=== PATIENT | female | born 1990 | race Caucasian/White ===

== ENCOUNTER 2023-06-02 07:04 | Outpatient (CLI) | payer BC, SELFPAY ==
--- NOTE | 2023-06-02 07:15 | US_ITS ---
Patient: LISA WALLIS Facility:?[facility] Patient ID:?[id number] Site Patient ID:?[id number]. Site :?[id number] Study:?US-OB Pelvis OB TV-06/02/2023 8:00:59 AM Ordering Physician:LAINEY VILLARREAL CNM Final Report: INDICATION: Ultrasound for dates and viability. Eight week 0 day by LMP. Technique: Multiple transabdominal grayscale and Doppler images obtained FINDINGS: Examination shows a single intrauterine gestation. Large nabothian cyst in the cervix. Right ovary measures 3.0 x 1.4 x 1.7 cm. Left ovary measures 3.2 x 1.7 x 2.5 cm. Corpus luteum present. EARLY GESTATION MEASUREMENTS: Onyx-rump length 1.6 cm, AGA of 8 weeks, 0 days. Mean gestational sac 3.0 cm. Yolk sac: 3.1 cm. Heart Rate: 155 bpm. IMPRESSION: 1. Single viable IUP. 2. Measurements are consistent with clinical dates. Dictated by Gabriel Hawkins MD @ 06/02/2023 12:01:12 PM Signed by:?Gabriel Hawkins MD @06/02/2023 12:01:12 PM (Electronic Signature)
== END 2023-06-02 07:05 | disposition home or self-care (01) ==
PROVIDERS: Visit Provider Advanced Practice Midwife
DX: Z34.91 Encounter for supervision of normal pregnancy, unspecified, first trimester (principal); Z3A.08 8 weeks gestation of pregnancy
CPT/HCPCS: 76817; 86592; 86703; 86704; 86706; 86762; 86787; 86803; 86850; 86900; 86901; 87086; 87340

== ENCOUNTER 2023-06-30 17:10 | Outpatient (CLI) | payer BC, SELFPAY | END 2023-06-30 17:11 | disposition home or self-care (01) | LOC: NFLDREF 17:11 | PROVIDERS: Visit Provider Advanced Practice Midwife | DX: E03.9 Hypothyroidism, unspecified (principal) | CPT/HCPCS: 84443; 87491; 87591 ==

== ENCOUNTER 2023-08-31 11:25 | Outpatient (CLI) | payer BC, SELFPAY | END 2023-08-31 11:26 | disposition home or self-care (01) | LOC: NFLDREF 09-02 08:34 | PROVIDERS: Visit Provider Advanced Practice Midwife | DX: E03.9 Hypothyroidism, unspecified (principal) | CPT/HCPCS: 84443 ==

== ENCOUNTER 2023-10-19 15:06 | Outpatient (CLI) | payer BC, SELFPAY | END 2023-10-19 15:07 | disposition home or self-care (01) | LOC: NFLDREF 10-20 09:45 | PROVIDERS: Visit Provider Advanced Practice Midwife | DX: Z34.83 Encounter for supervision of other normal pregnancy, third trimester (principal); E03.9 Hypothyroidism, unspecified | CPT/HCPCS: 84443; 86592 ==

== ENCOUNTER 2023-11-05 16:00 | Outpatient (CLI) | payer BC, SELFPAY | END 2023-11-05 16:01 | disposition home or self-care (01) | LOC: NFLDREF 11-10 15:27 | PROVIDERS: Visit Provider Midwife | DX: O99.013 Anemia complicating pregnancy, third trimester (principal); D64.9 Anemia, unspecified; Z3A.30 30 weeks gestation of pregnancy | CPT/HCPCS: 82728 ==

== ENCOUNTER 2023-11-11 11:37 | Outpatient (CLI) | payer BC, SELFPAY | END 2023-11-11 11:38 | disposition home or self-care (01) | PROVIDERS: Visit Provider Midwife | DX: O99.713 Diseases of the skin and subcutaneous tissue complicating pregnancy, third trimester (principal); L29.9 Pruritus, unspecified; Z3A.30 30 weeks gestation of pregnancy | CPT/HCPCS: 82239; 84450; 84460 ==

== ENCOUNTER 2023-11-13 07:01 | Outpatient (CLI) | payer BC, SELFPAY ==
--- NOTE | 2023-11-13 07:15 | CRLHL7_ITS ---
For Patients: As a result of the Century Cures Act, medical imaging exams and procedure reports are released immediately into your electronic medical record. You may view this report before your referring provider. If you have questions, please contact your health care provider. INDICATION: Disorders of skin and subcutaneous tissues TECHNIQUE: Real time zavala scale imaging of the fetus was performed. COMPARISON: 06/02/2023 FINDINGS: Sonographic imaging demonstrates a single living intrauterine gestation. Fetus demonstrates a regular cardiac rate of 141 beats per minute. Fetus has a vertex position. The placenta lies anteriorly. Amniotic fluid volume appears normal and there is a single deepest pocket of 7.3 cm. The estimated weight is 2410gm which lies at the greater than 97th percentile %. BPD and AC greater than 97th percentile. The fetus was active and demonstrated normal breathing movements. There was normal flexion and extension of the trunk and extremities. IMPRESSION: Normal biophysical profile score 8/8. Sonographic gestational age 33 weeks 5 days and sonographic due date of 12/27/2023. Sonographic age 16 days ahead of the clinical age. Estimated weight greater than 97th percentile. Abdominal circumference and biparietal diameter greater than 97th percentile. Dictated by King Simmons MD @ 11/13/2023 12:52:56 PM (Electronically Signed)
== END 2023-11-13 07:02 | disposition home or self-care (01) ==
PROVIDERS: Visit Provider Midwife
DX: O99.713 Diseases of the skin and subcutaneous tissue complicating pregnancy, third trimester (principal); L29.9 Pruritus, unspecified; Z3A.30 30 weeks gestation of pregnancy
CPT/HCPCS: 76816

== ENCOUNTER 2023-12-04 15:45 | Outpatient (CLI) | payer BC, SELFPAY | END 2023-12-04 15:46 | disposition home or self-care (01) | LOC: NFLDREF 12-08 09:12 | PROVIDERS: Visit Provider Advanced Practice Midwife | DX: Z34.93 Encounter for supervision of normal pregnancy, unspecified, third trimester (principal); Z3A.34 34 weeks gestation of pregnancy | CPT/HCPCS: 82728 ==

== ENCOUNTER 2023-12-18 05:07 | Inpatient (IN) | payer BC, SELFPAY ==
[2023-12-18] VITALS (24 sets, daily range): BP systolic 121–143; BP diastolic 59–73; PULSE 76–100; RESP 16–18; TEMP 36.8–37.2; O2SAT 90–100; BMI 30.2
[2023-12-18 04:47] LABS: Amnisure Rom* POSITIVE
[2023-12-18 05:40] LABS: Appearance Urine Clear (Clear); Bilirubin Urine Negative (Negative); Blood Urine Negative (Negative); Color Urine Yellow (Yellow); Glucose Urine Negative (Negative); Ketones Urine Trace (Negative); Leukocyte Esterase Urine Negative (Negative); Nitrite Urine Negative (Negative); Protein Urine Negative (Negative); Specific Gravity Urine 1.015 (1.000-1.030); Urobilinogen Urine 0.2 (0.2-1.0)
[2023-12-18 05:42] LABS: Basophils Percent Auto 0.3 % (0.0-3.0); Eosinophils Percent Auto 0.4 % (0.0-7.0); Hematocrit 33.1 % (33.0-51.0); Hemoglobin* 10.7 gm/dL (12.0-16.0); Immature Granulocytes Pct Auto 0.7 %; Lymphocytes Percent Auto 3.1 % (20-44); Mean Corpuscular HGB Conc 32 gm/dL (32-36); Mean Corpuscular Hemoglobin 26 pg (26-34); Mean Corpuscular Volume 82 fL (80-100); Monocytes Percent Auto 4.4 % (0.0-11.0); Neutrophils Percent Auto 91.1 % (42.0-72.0); Platelet Count* 228 K/uL (140-440); RDW Coefficient of Variation % 14.3 % (11.5-15.5); Red Blood Count 4.05 m/uL (4.00-5.20); White Blood Count* 12.83 K/uL (4.50-11.00)
[2023-12-18 05:43] LABS: Slide Review Reflex No
[2023-12-18] MEDS: LACTATED RINGERS 1000 ML 1,000 ML 125 ML IV (05:44)
[2023-12-18] MEDS: AMPICILLIN 2 GM in 0.9 % SODIUM CHLORIDE Mini-bag 100 ML IVPB (05:45)
--- NOTE | 2023-12-18 06:49 | W.PM.LDBA ---
Subjective History of Present Illness Date Seen: 12/18/23 Narrative: Patient is being admitted to Labor and Delivery for ROM of small amount of clear fluid first noted at 1830 12/17/2023. Very small amounts of fluid have continued to leak. Amnisure is positive. She is a 33 year old at 36 3/7 weeks gestation. Patient's care began at 8 and 0/7 weeks? gestation. She is dated by first trimester US consistent? with LMP. EDC is 04/07/2023. She has had routine visits since that time.? PFSH PFSH Active Problems (Updated 06/03/23 @ 16:40 by Sumi Kwon CNM) Hypothyroid (Acute) ?E03.9 - Hypothyroidism, unspecified (ICD-10)Anxiety (Acute) ?F41.9 - Anxiety disorder, unspecified (ICD-10) Medical History (Updated 06/03/23 @ 16:40 by Sumi Kwon CNM) Vaginal delivery ?O80 - Encounter for full-term uncomplicated delivery (ICD-10) Surgical History (Updated 06/02/23 @ 08:41 by Sumi Kwon CNM) [place] teeth removed ?K08.409 - Partial loss of teeth, unspecified cause, unspecified class (ICD-10) Family History (Updated 06/02/23 @ 08:42 by Sumi Kwon CNM) Mother Thyroid disease High cholesterolSister PCOS (polycystic ovarian syndrome) Specific Issues/Plans : Giuseppe important to pt that we not question her if she decides she wants an epidural #Hypothyroid- on 75mcg levothyroxine 12 weeks- 3.180 increased to 88 mcg TSH 2nd Trimester: 0.521 TSH 3rd trimester: 10/18 27w6d 0.779 (normal)-advised to stay on current dose #Anxiety- on 20mg escitalopram. #AMA 35yrs genetic screening -declines level II US- normal anatomy scan. Previously noted nabothian cyst noted. Growth at 28-32 weeks-declines BPP/NST at 36weeks-declines IOL at 39 weeks-declines # Large nabothian cyst 1.12x0.84x1.61cm. Per MFM should not impact delivery #Anemic at 28 weeks recommended iron supplement and increasing diet intake #Pruritis in , visual rash suspect PUPPS NST 11/10- reactive for GA-weekly if ICP Dx (twice weekly if acids >40) AST/ALT, Bile Acids, CBC drawn 11/08-results pending, needs weekly if ICP Growth US/BPP ordered for 11/13/2023 Comments: She is taking Lexapro 20mg daily, levothyroxine 88mcg, PNV and DHA, ferrous fumarate and triamcinolone cream. NKDA OB - Problem Based A/P Additional Plan (1) premature rupture of membranes: Status: Acute (2) Hypothyroid: Status: Acute (3) Anxiety: Status: Acute (4) Advanced maternal age in multigravida: Status: Acute (5) : Status: Acute (6) Anemia affecting : Status: Acute (7) Pruritus of in third trimester: Status: Acute Plan ASSESSMENT:?? 33yo at 36w3d weeks gestation?? complicated by:?? premature ROM Labor type: Early labor?? Category 1 FHR pattern.??? Labor complicated by: GBS unknown, PPROM? PLAN:?? 1. Routine intrapartum cares as ordered. Continue with expectant management?per patient preference. Risk of infection with PPROM, GBS unk risk and , increased risk of with PPROM reviewed along with data reflecting 90% of multigravidas will go into labor within 24 hrs of ROM. She is declining augmentation at this point. May consider augmentation as indicated after first dose of antibiotics has been in for 4 hours. ? 2. Monitoring per policy, continuous. Peds to attend . 3. Planning unmedicated . Declines water . Candidate for analgesia of choice. Does not want to be offered an epidural, but does not want resistance if she desires an epidural.??? 4. Patient encouraged to reposition and ambulate to promote physiologic labor and with position changes to promote rotation. Currently LOP?? 5. GBS prophylaxis initiated for GBS positive status. Will treat with antibiotics per protocol.? 6. Encouraged to eat and push PO fluids. 7. Anticipate ? OB Result Labs Blood Type: AB (+) positive Rubella: immune RPR/VDLR: nonreactive GBS Status: unknown HBsAG: negative OB Exam Physical Exam Vital signs: Temp Pulse Resp BP 99 F 88 18 129/67 12/18/23 04:10 12/18/23 04:10 12/18/23 04:10 12/18/23 04:10 Narrative: Vitals Reviewed Constitutional:? Alert and oriented x3 HEENT:? Normocephalic, atraumatic Neck:? Supple Lungs:? Clear to auscultation bilaterally Heart:? Regular rate and rhythm, no murmur, rub or gallop Abdomen:? Soft, nontender, and gravid. Vertex by Elfego's, confirmed with ultrasound. Extremities:? No edema or erythema Cervix: 1.5 cm/30%/-3 station/vertex per nursing NST: 145 bpm/moderate variability/intermittent, rare accelerations/no decelerations/contractions q 5 min palpating mild
[2023-12-18] MEDS: AMPICILLIN 1 GM in 0.9 % SODIUM CHLORIDE Mini-bag 100 ML IVPB (09:33)
--- NOTE | 2023-12-18 09:40 | P.OBPN_ITS ---
Subjective Date Seen: 12/18/23 Narrative: Janelle is a 33 yo at 36 3/7 weeks gestation presented this morning for PROM confirmed with amnisure. She has continued leaking clear fluid. She reports feeling mild contractions, slowly becoming more regular. Her GBS swab was collected yesterday in clinic and is still pending. She is receiving antibiotics for GBS unknown status at this time. She is coping well with labor and supported by her , Giuseppe, at this time. Plan AROM of forebag to augment labor. Objective Exam: Objective: Constitutional: Alert and oriented x3, moderate distress, coping well Vital signs stable, see nurse documentation Abdomen: gravid, contractions palpate moderate with contractions and soft between Cervix: 3 cm/70%/-2 station/vertex; AROM forebag for clear fluid NST: 155 bpm/moderate variability/15x15 accelerations/no decelerations/contractions every 3-6 minutes Vital Signs: Last Vital Signs Temp 98.3 F 12/18/23 13:30 Pulse 86 12/18/23 15:58 Resp 18 12/18/23 13:30 BP 131/64 12/18/23 15:58 Pulse Ox 90 12/18/23 15:22 Plan Plan: ASSESSMENT:?? 33yo at 36w3d weeks gestation?? complicated by:? premature ROM, Hypothyroid, Anxiety on Lexapro, AMA, Large nabothian cyst, anemia (10.7 on admission), Pruritis in pre gnancy Labor type: Early labor?? Category 1 FHR pattern.??? Labor complicated by: GBS unknown, PPROM? PLAN:?? 1. Routine intrapartum cares as ordered. Continue with expectant management?per patient preference. Reviewed risk of infection with PPROM, GBS unk risk and , increased risk of with PPROM reviewed along with data reflecting 90% of multigravidas will go into labor within 24 hrs of ROM. We discussed augmentation with AROM of forebag, pt agreeable and performed with consent for clear fluid. 2. Monitoring per policy, continuous. 3. Planning unmedicated . Declines water . Candidate for analgesia of choice. Does not want to be offered an epidural, but does not want resistance if she desires an epidural.??? 4. Patient encouraged to reposition and ambulate to promote physiologic labor and with position changes to promote rotation. Currently LOP?? 5. GBS prophylaxis initiated for GBS unknown status. Will treat with antibiotics per protocol.?If GBS results, will change antibiotic plans based on results. 6. Encouraged to eat and push PO fluids. 7. Peds notified to attend . 8.Anticipate ?
[2023-12-18] MEDS: LEVOTHYROXINE 88 MCG TABLET PO (10:24)
[2023-12-18] MEDS: OXYTOCIN 10 UNIT/ML INJ IM (16:25)
--- NOTE | 2023-12-18 17:09 | W.PM.VAGDE_ITS ---
OB Procedure Vag Delivery Mother Details Mother Details: The patient is a 33 year-old, 3, now Para 2011, admitted on 12/18/23 at 36.3 weeks gestation. : 3 Para: 2 Weeks Gestation: 36.3 Admission Date: 12/18/23 Additional Details Amniotic Membrane Status: SROM (PPROM) Amniotic Membrane Rupture Date: 12/17/23 Amniotic Membrane Rupture Time: 19:00 Amniotic Membrane Fluid Description: Clear Analgesia/Anesthesia Type: None Waterbirth: No Pitcoin: Yes ([facility] only) Intrapartal Events: Labor Augmentation (w/ AROM of forebag) Delivery augmentation: rupture of membranes (AROM of forebag) Labor Onset: 02:00 Complete: 14:48 Pushin:48 Heart: heart tones during second stage were reassuring with baseline of 130's and intermittent decelerations with pushing that improved/resolved between contractions. Difficult to monitor at times due to maternal position. Delivery Details Delivery Date: 12/18/23 Delivery Time: 15:25 Route of delivery: Infant Gender: Female Viability: Alive; Heart Rate Present Position at Delivery: OA Delivery Details: Patient was admitted for PPROM and progressed with AROM of forebag for augmentation. SROM of clear fluid occured at 1900. Patient labored well with mo vement and forebag was AROM'd for clear fluid at 0928. Patient progressed normally after this time. Patient was assumed complete with pushing at 1448. Peds was called to attend delivery due to gestational age. of a viable male at 1525 in hands and knees on the bed. Vertex delivered OA with compound left hand. No nuchal cord or shoulder. Body was difficult to deliver due to hand and maternal position. She was instructed to lunge and then body was delivered without incident. Infant was stimulated between mom's legs due to maternal position before being passed to mothers abdomen with a weak cry. Cord was clamped and cut at 60 seconds and taken to the warmer for furtehr assessment by peds and RN. He initially needed some CPAP, then blow by O2, before transitioning to room air. APGARS were 4 at one minute, 7 at five minutes, and 7 at 10 minutes respectively. Mouth was bulb suctioned. Intact placenta with a 3 vessel cord delivered spontaneously at 1543. Fundus firm. Right periurethral identified, hemostatic and well approximated, no repair indicated. Small perineal abrasion and left perurethral abrasion noted. QBL 400 cc. IV was displased and IV pitocin was then not administered. IM recommended with any additional bleeding. A short time after, she passed a clot of about 481. IM pitocin was given. Bleeding has since been appropriate. Mother and baby stable; mother plans to breastfeed. weight 7lb 13 oz. 1 Minute Interval Total Score: 4 5 Minute Interval Total Score: 7 10 Minute Interval Total Score: 7 Additional Details Shoulder Dystocia: No Placenta Delivery Time: 15:43 Procedure Done: Global Blood Loss: 881 (Total with clot ) Laceration: Periurethral - 1st Degree (no repair) Blood Loss Measurement Type: QBL Bakri Used: No Sponge/Need Count Correct: Yes Cord Vessel Description: 3 Vessels Event Summary Status: Mother and infant were stable after delivery. Disposition: floor
[2023-12-19 01:51] VITALS: BP 124/76; PULSE 76; RESP 12; TEMP 36.6; O2SAT 97
[2023-12-19] MEDS: IBUPROFEN 600 MG TABLET PO ×3 (01:52→23:35)
[2023-12-19 08:36] VITALS: BP 129/78; PULSE 79; RESP 18; TEMP 36.5; O2SAT 97
--- NOTE | 2023-12-19 12:42 | PM.OBPNVD1 ---
OB - PN:Subj Subjective Date Seen: 12/19/23 Narrative: ?The patient feels well.? The pain is well controlled with current medications, but she does note darker urine and some right suprapubic discomfort. She is wondering if she has a UTI.? She has no other new complaints.? Urinary output is adequate and she is voiding without difficulty.? Has a good appetite, is tolerating a general diet, is passing flatus, and has had a bowel movement.? Has scant amount of rubra lochia.? She is ambulating well. She is , but baby is still very sleepy and not yet interested very much. They plan to stay another night. ? OB - PN: Obj Exam Physical Exam: Vital signs: Temp Pulse Resp BP Pulse Ox O2 Del Method 97.7 F 79 18 129/78 97 Room Air 12/19/23 08:36 12/19/23 08:36 12/19/23 08:36 12/19/23 08:36 12/19/23 08:36 12/19/23 08:36 Narrative: GENERAL APPEARANCE:? normal affect, alert, no distress MOOD:? appropriate CHEST:? clear to auscultation HEART:? regular rate and rhythm ABDOMEN:? soft, non-tender the uterine fundus is 2 cm below Umbilicus, Midline and is appropriate for the stage of recovery. EXTREMITIES:? normal and [] edema OB - PN: Obj Data Labs Labs: Laboratory Results - last 24 hr 12/19/23 06:10 Hgb 9.0 L OB - PN: A/P Delivery Assessment and Plan (1) Hypothyroid: Status: Acute (2) Anxiety: Status: Acute (3) Anemia affecting : Status: Acute (4) care and examination of lactating mother: Status: Acute (5) (normal spontaneous vaginal delivery): Status: Acute (6) delivery: Status: Acute Plan PP day #1 Routine care May see as desired Anticipate discharge 12/20/2023
[2023-12-19 13:03] VITALS: BP 117/72; PULSE 74; RESP 18; TEMP 36.6; O2SAT 97
[2023-12-19 17:11] VITALS: BP 135/67; PULSE 87; RESP 16; TEMP 36.4; O2SAT 97
[2023-12-19] MEDS: ACETAMINOPHEN 500 MG TABLET 1000 MG PO (18:27)
[2023-12-19] MEDS: DOCUSATE SODIUM 100 MG CAPSULE PO (18:27)
[2023-12-19 18:37] LABS: Appearance Urine Slightly Cloudy (Clear); Bilirubin Urine Negative (Negative); Blood Urine 2+ (Negative); Color Urine Yellow (Yellow); Glucose Urine Negative (Negative); Ketones Urine Negative (Negative); Leukocyte Esterase Urine Trace (Negative); Nitrite Urine Negative (Negative); Protein Urine Negative (Negative); Urobilinogen Urine 0.2 (0.2-1.0); pH Urine 5.5 (5.0-8.5)
[2023-12-19 18:49] LABS: RBC Urine >100 (0-2); Squamous Epithelial Cell Urine Few (None-Few)
[2023-12-19 23:55] VITALS: BP 121/88; PULSE 74; RESP 12; TEMP 36.6
[2023-12-20 01:09] LABS: Rapid Plasma Reagin (RPR) Non Reactive (Non Reactive)
[2023-12-20 07:50] VITALS: BP 120/80; PULSE 80; RESP 16; TEMP 36.6; O2SAT 98
[2023-12-20] MEDS: ESCITALOPRAM 10 MG TABLET 20 MG PO (08:21)
[2023-12-20] MEDS: LEVOTHYROXINE 88 MCG TABLET PO (08:21)
--- NOTE | 2023-12-20 09:09 | P.DS_ITS ---
DS: Providers Provider Date Seen: 12/20/23 Date of admission: 12/18/23 05:07 Primary care physician: Not a Local Provider Admitting Clinician: Enid Sprague CNM Attending Physician on discharge: Enid Sprague CNM Date of Discharge: 12/20/23 DS: Diagnosis Discharge Diagnosis (1) (normal spontaneous vaginal delivery): Status: Acute (2) delivery: Status: Acute (3) care and examination of lactating mother: Status: Acute (4) Anemia affecting : Status: Acute (5) Hypothyroid: Status: Acute (6) Anxiety: Status: Acute Exam Narrative: Exam Narrative: GENERAL APPEARANCE:? normal affect, alert, no distress MOOD:? appropriate CHEST:? clear to auscultation HEART:? regular rate and rhythm ABDOMEN:? soft, non-tender the uterine fundus is 2 cm below Umbilicus, Midline and is appropriate for the stage of recovery. PERINEUM:? minimal edema of the perineum, there is a Perineal Laceration,?that appears to be healing appropriately. EXTREMITIES:? normal and minimal edema Const: Vital Signs, click to edit/add: Vital Signs - 24 hr 12/19/23 13:03 12/19/23 17:11 12/19/23 23:55 Temperature 97.8 F 97.6 F 97.8 F Pulse Rate [Pulse Oximeter] 74 87 74 Respiratory Rate 18 16 12 Blood Pressure [Le ft Arm] 117/72 135/67 121/88 Pulse Oximetry 97 97 Oxygen Delivery Me thod Room Air Room Air 12/20/23 07:50 Temperature 97.9 F Pulse Rate [Pulse Oximeter] 80 Respiratory Rate 16 Blood Pressure [Le ft Arm] 120/80 Pulse Oximetry 98 Oxygen Delivery Me thod Room Air OB - DS: Summary Hospital Course Hospital Course: Janelle is a y.o. G 2 P 2003 who was admitted to [facility] for PPROM.? She had a NVD that was complicated. The patient feels well.? The pain is well controlled with current medications.? She has no new complaints.? She is breast feeding, but baby has not yet latched. He is currently receiving bottles and IV fluids. Janelle states her daughter did not breastfeed in the hospital, but did just fine at home. the patient has done well.? Vitals have been stable.? She has remained afebrile.? Has a good appetite, is tolerating a general diet.? She is voiding without difficulty.? She is passing gas and has had a bowel movement.? She is ambulating and denies any dizziness.? Has scant amount of rubra lochia. She is planning condoms for prevention.? ?? Problems: difficulty? ?? plan:? Discharge house guest since baby will not be discharged today.? Follow up in 2 weeks and 6 weeks.? , may see if needed? Hgb 9.0. ? Pumping encouraged to maintain and increase supply To change back to 75mcg levothyroxine for . Will check TSH at 6w PP. To continue escitalopram. Call for signs/symptoms of preeclampsia? For pain control of perineum, breast and pelvic pain, take 600 mg Ibuprofen ever y 6 hours as needed by mouth or 1000 mg acetaminophen (Tylenol) every 6 hours by mouth as needed. You can alternate these so you are taking something every 3 hours as needed. A heating pad can also be used for your abdomen or breasts.?You may also use docusate sodium (Colace) for stool softening as needed up to twice daily. Decrease dosing or stop use when stools have returned to a normal, soft pattern. Peripartum Data delivery method: Vaginal Laceration description: Periurethral - 1st Degree (no repair) Episiotomy description: None complications: none Gender: Male Discharge Plan: Home (eventually) Status at Discharge Overall status at discharge: patient is progressing back to baseline Time Spent with Patient Time attestation: Total time spent providing and/or coordinating discharge services: Time spent: Less than 30 minutes Discharge Plan Discharge Disposition: Home, Self-Care Date of Admission: 12/18/23 05:07 Attending Provider on Discharge: Enid Sprague Primary Care Provider: Provider,Not a Local Condition: Stable Anticipated Discharge Date/Time: 12/20/23 09:20 Discharge Medications: New levothyroxine 75 mcg capsule 75 mcg PO DAILY@0700 Qty: 90 3RF Continued escitalopram oxalate 20 mg tablet 20 mg PO QDAY DHA 200 mg capsule 200 mg PO DAILY ferrous fumarate 324 mg (106 mg iron) tablet 324 mg PO .every other day Qty: 60 1RF Discontinued calcium carbonate [Tums] 200 mg calcium (500 mg) tablet,chewable 200 mg PO BID triamcinolone acetonide 0.1 % cream 1 applic topical BID Qty: 30 0RF levothyroxine 88 mcg tablet 88 mcg PO QDAY Qty: 45 0RF Discharge Orders: Discharge Order (Routine); Ordered 12/20/23 Ordered By: Enid Sprague Patient Education: OB [place] Care, OB Vaginal/Breast Feeding Additional Instructions: Discharge instructions were reviewed with the patient including signs and symptoms of infection and home going medications Nothing vaginally for 6 weeks: no tampons or intercourse Do not drive while taking narcotic pain medication(s) Off Work or School for 6 weeks Symptoms to report to doctor: * Bleeding that saturates more than one pad per hour * Passing clots larger than the size of a golf ball * Pain not relieved by prescribed medication * Fever above 100.4 degrees Fahrenheit * A foul vaginal odor * Difficulty in emotions, mood, and functions * Thoughts of hurting yourself and/or * Painful, reddened area in your breast * Any drainage, redness, or tenderness in your IV/epidural site * Severe headache that doesn't improve after taking medications * Changes in vision, including temporary loss of vision, blurred vision, and/or light sensitivity * Upper abdominal pain (usually under ribs on the right side) * Decrease in urination or painful, frequent urinating * Chest pain * Shortness of breath * Tenderness or pain with redness and/swelling in the calf(s) of your leg 2-week visit: discuss infant feeding concerns, review control options and screen for anxiety/depression. 6-week visit for an annual exam. consultation services are available to all mothers and babies for the first year after delivery.? To make an appointment, please call [phone].For pain control of perineum, breast and pelvic pain, take 600 mg Ibuprofen every 6 hours as needed by mouth or 1000 mg acetaminophen (Tylenol) every 6 hours by mouth as needed. You can alternate these so you are taking something every 3 hours as needed. A heating pad can also be used for your abdomen or breasts.?You may also use docusate sodium (Colace) for stool softening as needed up to twice daily. Decrease dosing or stop use when stools have returned to a normal, soft pattern. Activity Level: Activity as Tolerated and No strenuous activity Discharge Diet: Regular Follow Up Appointments: [facility] [Provider Group] Forms: [employer] Info Instructions
== END 2023-12-20 12:40 | disposition home or self-care (01) | DRG 560 ==
LOC: OB OUT 05:07 → OB 05:07
PROVIDERS: Advanced Practice Midwife; Admitting Provider Midwife; Visit Provider Midwife
DX: O42.013 Preterm premature rupture of membranes, onset of labor within 24 hours of rupture, third trimester (principal); O99.284 Endocrine, nutritional and metabolic diseases complicating childbirth; E03.9 Hypothyroidism, unspecified; O99.344 Other mental disorders complicating childbirth; F41.9 Anxiety disorder, unspecified; O99.02 Anemia complicating childbirth; D64.9 Anemia, unspecified; O99.72 Diseases of the skin and subcutaneous tissue complicating childbirth; O26.86 Pruritic urticarial papules and plaques of pregnancy (PUPPP); Z3A.36 36 weeks gestation of pregnancy; Z37.0 Single live birth; O34.83 Maternal care for other abnormalities of pelvic organs, third trimester; N88.8 Other specified noninflammatory disorders of cervix uteri
CPT/HCPCS: 36415; 81001; 81003; 84112; 85018; 85025; 86592; 86850; 86900; 86901; 87081; 87086; 87653; 88307; 96374; G0463; A9270; J0290; J1756; J2590; J7120

== ENCOUNTER 2023-12-18 08:15 | Outpatient (RCR) | payer BC, SELFPAY ==
--- NOTE | 2023-12-11 11:51 | URNOTE ---
Prior auth is not required for Selam ([id number]), 12/09/2023-03/01/2024 REf #[id number]
[2023-12-16 08:20] VITALS: BP 119/75; PULSE 90; RESP 16; TEMP 36.3; O2SAT 100
[2023-12-16] MEDS: IRON SUCROSE COMPLEX 200 MG in 0.9 % SODIUM CHLORIDE 100 ml 440 MG IVPB (08:52)
[2023-12-16 09:25] VITALS: BP 137/72; PULSE 88; RESP 16; O2SAT 100
== END 2024-06-13 23:59 | disposition home or self-care (01) ==
LOC: CCIC 08:15
PROVIDERS: Visit Provider Clinical Nurse Specialist
DX: O99.02 Anemia complicating childbirth (principal); D50.9 Iron deficiency anemia, unspecified
CPT/HCPCS: 96374; J1756

== ENCOUNTER 2023-12-23 14:15 | Outpatient (CLI) | payer BC, SELFPAY ==
--- NOTE | 2023-12-23 15:44 | W.PM.LAC.MC ---
Consult Note - Mom Date of Visit Date of visit: 12/23/23 Reason for consultation: Assistance Needed Visit Code: Visit Patient's Information Phone number: [phone] : 2 Para: 2 Allergies No Known Drug Allergies Allergy (Verified 12/17/23 11:16) Mother's Medical History: Medical History (Updated 12/19/23 @ 12:51 by Enid Sprague CNM) delivery ?O60.10X0 - labor with delivery, unspecified trimester, not applicable or unspecified (ICD-10) Anxiety ?F41.9 - Anxiety disorder, unspecified (ICD-10) Hypothyroid ?E03.9 - Hypothyroidism, unspecified (ICD-10) Pruritus of in third trimester ?O99.713 - Diseases of the skin and subcutaneous tissue complicating , third trimester (ICD-10) ?L29.9 - Pruritus, unspecified (ICD-10) premature rupture of membranes ?O42.919 - premature rupture of membranes, unspecified as to length of time between rupture and onset of labor, unspecified trimester (ICD-10) Vaginal delivery ?O80 - Encounter for full-term uncomplicated delivery (ICD-10) Delivery Information Delivery type: Vaginal Gestational Age: 36+3 Gestational Weight For Age: AGA Weight: 3.54 kg Discharge Weight: 3.294 kg Percentage weight loss: 6.94 Baby's Information Baby's Age at Visit: 5 days Baby's Provider or Clinic: [facility] Jaundice: Yes Past Experience Past Experience: Yes (2 years) Current Frequency of Day Feedings: every 2-3 hours day and night; hard to wake him for feedings sometimes Both Breasts: Yes (offered,usually just one side) Suck: strong once he gets going Latch: comfortable Length of Time: 5-30 minutes on one side Goals: more than 1 year Pumping Pumping: Yes Quantity Pumped: 1-2oz/breast Supplementing EBM Supplement: Yes (45 ml if not latching well) Formula Supplement: No Baby Elimination Number of Wet Diapers a Day: 6 or more Number of BM a Day: 5-6/day; yellow and seedy Breast/Nipple Condition Breast Information: Breasts are symmetrical with rounded lower quadrants, intramammary distance is less than 1.5 inches. No erythema. Nipples are supple, everted prior to feeding. Breast Shape: Round Engorgement: No Maternal Nipple Condition - Left: Common Nipple Maternal Nipple Condition - Right: Common Nipple Sore Nipples: No Baby Assessment Skin: Yellow (face and shoulders) Tongue/frenulum: Normal/elastic Palate: Average Lips: Relaxed and Symmetrical Jaw Alignment: Symmetrical Mucosa: [place], moist Onsite Observation Pre-Feed weight: 3.352 kg Post-Feed weight: 3.39 kg Milk Transferred (mL): 38 Position: Cross cradle Attachment/latch-on achieved: With difficulty (took some repositioning to get him on wide and deep) Suck pattern: Suck burst and normal rest Swallow: Audible, consistent Behavior following feed: Alert, content Pre-Nursing Left Nipple: Within Normal Limits Pre-Nursing Right Nipple: Within Normal Limits Post-Nursing Left Nipple: Within Normal Limits Post-Nursing Right Nipple: Within Normal Limits Assessments/Interventions Assessments/Interventions: Worked with mom/taught asymmetrical latch technique with a breast sandwich for a wide, deep latch and mom reports increased comfort with this Discussed expressing a few drops of colostrum and then pulling baby away from nipple just enough that he's not touching her nipple to help him open wide for latching. Cool packs after feeding may help breast congestion and reduce need for pumping if baby only nursing on one breast/feed. Ibuprofen for mom ok to help decrease breast discomfort as needed. Education provided: Early feeding cues to maximize timing of latching, Asymmetric latch technique for wide/deep latch to increase milk, Transfer for baby and increase comfort for mom, Supply/demand nature of milk supply, Alternative feeding methods (SNS, cup, finger feeding, bottling) and Pumping for milk management Feeding Plan: Tug of war exercises prior to nursing to help baby get tongue down to allow for proper latching Continue feeding every 2-3 hours; if baby sleepy at the 2 hour demarcus, ok to go the 3 hour stretch Discussed measures to waken him for feedings (unswaddled, clothes off, diaper change) Always offer both breasts ea feeding; switch after 15 min on one side to increase his milk volume intake Discusssed bottle options and paced bottle feeding if needed for sleepy baby Follow-Up Suggested follow up: Appointment as needed Time Spent Time spent with patient (min): 70 (reviewing EMR and face to face time with patient, and baby) Meds Home Medications and Allergies Home Medications ?Medication ?Instructions ?Recorded ?Confirmed ?Type escitalopram oxalate 20 mg tablet 20 mg PO QDAY 06/02/23 12/18/23 History docosahexaenoic acid 200 mg 200 mg PO DAILY 08/03/23 12/18/23 History capsule ( DHA) Allergies Allergy/AdvReac Type Severity Reaction Status Date / Time No Known Drug Allergies Allergy Verified 12/17/23 11:16
== END 2023-12-23 14:16 | disposition home or self-care (01) ==
LOC: OB LAC 14:18
PROVIDERS: Visit Provider Obstetrics & Gynecology
DX: Z39.1 Encounter for care and examination of lactating mother (principal)
CPT/HCPCS: G0463

== ENCOUNTER 2024-01-01 12:52 | Outpatient (CLI) | payer BC, SELFPAY ==
--- NOTE | 2024-01-01 13:00 | CRLHL7_ITS ---
For Patients: As a result of the Century Cures Act, medical imaging exams and procedure reports are released immediately into your electronic medical record. You may view this report before your referring provider. If you have questions, please contact your health care provider. INDICATION: hemorrhage COMPARISON: none TECHNIQUE: 2D zavala scale and color Doppler images were acquired of the pelvis using a transabdominal and transvaginal approach. FINDINGS: Sonographic images demonstrate a normal size and smooth outer contour of the uterus. Uterus measures 9.8 cm in length by 6.1 cm in AP diameter by 8.6 cm in transverse dimension. The myometrium has a normal uniform echotexture. Fluid with reticular echoes noted within the endometrial canal. No abnormal vascularity. Endometrium measures 5 millimeters in thickness. The right ovary is not visualized and the left ovary measures 2.7 x 0.9 x 1.9 cm. The left ovary demonstrates normal arterial and venous blood flow on color Doppler analysis. There are no suspicious fluid collections within the cul-de-sac. IMPRESSION: Blood products within the endometrial canal without evidence of retained products of conception. Dictated by King Simmons MD @ 01/01/2024 1:56:50 PM (Electronically Signed)
== END 2024-01-01 12:53 | disposition home or self-care (01) ==
LOC: US 12:53
PROVIDERS: Visit Provider Advanced Practice Midwife
DX: O72.1 Other immediate postpartum hemorrhage (principal)
CPT/HCPCS: 76830; 76856

== ENCOUNTER 2024-03-04 15:39 | Outpatient (CLI) | payer BC, SELFPAY | END 2024-03-04 15:40 | disposition home or self-care (01) | LOC: NFLDREF 15:41 | PROVIDERS: Visit Provider Registered Nurse | DX: E03.9 Hypothyroidism, unspecified (principal) | CPT/HCPCS: 84443 ==